=== PATIENT | male | born 1990 ===

== ENCOUNTER 2022-03-18 05:03 | Emergency (ER) | payer SELFPAY ==
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
[2022-03-18] MEDS ORDERED: CYCLOBENZAPRINE 10 MG TAB PO ONE (09:00)
[2022-03-18] MEDS ORDERED: KETOROLAC 10 MG TAB PO ONE (09:00)
[2022-03-18 09:34] VITALS: BP 141/78
== END 2022-03-18 09:32 | disposition home or self-care (01) ==
LOC: ED 05:03
DX: S16.1XXA Strain of muscle, fascia and tendon at neck level, initial encounter (principal); M54.50 Low back pain, unspecified; V89.2XXA Person injured in unspecified motor-vehicle accident, traffic, initial encounter; Y93.89 Activity, other specified; Y92.89 Other specified places as the place of occurrence of the external cause; Y99.8 Other external cause status
CPT/HCPCS: 72040; 99283